=== PATIENT | male | born 1970 | race Caucasian/White ===

== ENCOUNTER 2019-06-13 13:33 | Observation (INO) ==
[2019-06-13] MEDS ORDERED: ONDANSETRON INJ 2 MG/ML 2 ML VIAL IV STA (14:12)
--- NOTE | 2019-06-13 14:21 | Emergency Department Note ---
ED Provider Note NAME: LEXUS LYNNE AGE: 49 SEX: M : 1970 ARRIVES VIA: Walk-In INFORMANT: [Patient, nursing staff] ED PROVIDER(S): [Home Simeon MD] CHIEF COMPLAINT: Alcohol overdose HISTORY OF PRESENT ILLNESS: Patient is a 49-year-old male who presents to the ER by transport vehicle from [facility]. The patient presented there quite intoxicated and admitted to drinking prior to arrival. He was too intoxicated to be assessed and then sent to this ER. The patient admits to falling recently, there is a scrape on his left ribs. He denies any current pain or vomiting, he states that he is not short of breath. The patient's history is quite limited given his alcohol intoxication/mental state. REVIEW OF SYSTEMS: Limited secondary to mental state PMHx/PSHx: See Below SOCIAL HISTORY: See Below. PHYSICAL EXAM: GENERAL: Patient is in no acute distress. Sleeping on the stretcher HEENT: No acute trauma, normocephalic atraumatic, mucous membranes moist, no nasal congestion, no scleral icterus. Pupils equal and reactive to light. NECK: No stridor, no adenopathy, no meningismus, trachea is midline. LUNGS: Clear to auscultation bilaterally, no wheeze, no rhonchi, breath sounds equal. HEART: Mildly tachycardic, regular rhythm, no murmurs. ABDOMEN: Soft, nontender, bowel sounds positive, no hernias, no peritonitis. EXTREMITIES: No cyanosis or edema, full range of motion of all the joints without pain or difficulty, no signs for acute trauma. NEUROLOGIC: Slurs his speech, moves all extremities, seems quite intoxicated with alcohol. Answers very simple and pointed questions. SKIN: No rash, no jaundice, no diaphoresis. DIFFERENTIAL DIAGNOSIS: Alcohol intoxication, toxicologic, infection, hypoglycemia, electrolyte abnormalities, cardiac sources, intracerebral event, neurologic, trauma, as well as other pathologies. EMERGENCY DEPARTMENT COURSE/PROCEDURES: Continuous Cardiac Monitoring: An order was placed for continuous cardiac monitoring. The monitor shows a rate of 106 with sinus tachycardia. MEDICAL DECISION MAKING: The patient is a 49-year-old male who presents with what was presumed to be an alcohol overdose. The patient was trying to get to [facility] but when he arrived at the facility, he was quite altered and was felt in need of medical clearance. He was sent here for a medical work-up. The patient is somnolent but answers simple questions, he does slur his speech. He denied any trauma today or current pain. He did admit to falling several d ays ago injuring his left ribs. There is no leukocytosis or concerning anemia. No significant electrolyte abnormality or kidney failure. There were a few subtle liver enzyme elevations, the bilirubin was normal. Urinalysis did not show infection. Urine tox was negative. Alcohol level was quite elevated at 427. Chest CT did not show any acute traumatic injury. The lungs are clear. Brain CT showed no acute bleed or mass-effect. The patient received IV Zofran, he was ordered for IV Ativan to help with some sedation/agitation. The patient is quite intoxicated and I do think will require a hospital stay. I suspect he will start to have withdrawal when his alcohol level begins to trend down. He is not stable for discharge back to [facility]. I spoke to the caser shoe parts, I talked to the patient. The on-call hospitalist has been consulted. Impression & Plan Alcohol overdose, Alcohol abuse, Change in mental status Past Med/Surg History Medical History Alcohol abuse Depression Tobacco abuse Surgical History History of cervical spinal surgery Family History (Updated 06/13/19 @ 16:46 by Rosetta Morrell PA-C) Father Alzheimer disease Social History Preferred Language: Marshallese Communication Ability: Effective Pottery Striper Required: No Beliefs That Will Affect Care: None Current Living Situation: Alone Other Information That Helps Us Care for You: No Smoking Status: Current every day smoker Tobacco Type: cigarettes ; Cigarettes Per Day: 1/2 ppd ; Hx Alcohol Use: Yes Alcohol type: hard liquor Hx Substance Use: No Results & Data Vital Signs Vital Signs - 24 hr 06/13/19 13:40 06/13/19 13:54 06/13/19 14:33 Temperature 36.7 C Temperature Source Oral Pulse Rate 128 H 120 H 117 H Pulse Rate [Apical] Pulse Rate from SpO2 Sensor 120 H 118 H Respiratory Rate 20 21 30 H Blood Pressure 119/78 170/112 H 154/102 H Blood Pressure [Right Arm] Blood Pressure Mean 91 124 121 Blood Pressure Mean [Right Arm] Pulse Oximetry 97 91 96 Oxygen Delivery Method Room Air Sepsis Recent Fever Within 48 Hours No Sepsis New/Unexplained Change in Mental Status No Sepsis Action Taken by Nursing No Action Required 06/13/19 14:58 06/13/19 14:59 06/13/19 15:00 Temperature Temperature Source Pulse Rate 109 H Pulse Rate [Apical] 107 H Pulse Rate from SpO2 Sensor 110 H 116 H Respiratory Rate 14 16 13 Blood Pressure 143/88 H 152/83 H Blood Pressure [Right Arm] 143/88 H Blood Pressure Mean 95 108 Blood Pressure Mean [Right Arm] 106 Pulse Oximetry 94 95 94 Oxygen Delivery Method Room Air Sepsis Recent Fever Within 48 Hours Sepsis New/Unexplained Change in Mental Status Sepsis Action Taken by Nursing 06/13/19 15:20 06/13/19 15:30 06/13/19 16:00 Temperature Temperature Source Pulse Rate 108 H 111 H 114 H Pulse Rate [Apical] Pulse Rate from SpO2 Sensor 110 H 110 H 115 H Respiratory Rate 14 12 18 Blood Pressure 131/108 H 143/94 H 131/80 Blood Pressure [Right Arm] Blood Pressure Mean 113 102 99 Blood Pressure Mean [Right Arm] Pulse Oximetry 95 93 94 Oxygen Delivery Method Room Air Sepsis Recent Fever Within 48 Hours Sepsis New/Unexplained Change in Mental Status Sepsis Action Taken by Care Home Medications Current Medication List: was personally reviewed by me Laboratory Data Attestation: I reviewed the patient's lab results. Result diagrams: 06/13/19 14:25 06/13/19 14:25 Lab Results 06/13/19 06/13/19 06/13/19 Range/Units 14:20 14:20 14:25 WBC 10.60 (4.8-10.8) K/uL RBC 5.31 (4.7-6.1) M/uL Hgb 15.7 (14.0-18.0) g/dL Hct 45.0 (42-52) % MCV 84.7 (80-100) fL MCH 29.6 (25-34) pg MCHC 34.9 (32-36) g/dL RDW Std Deviation 42.5 (36.4-46.3) fL RDW Coeff of Olivia 13.9 (11.5-14.5) % Plt Count 230 (130-400) K/uL MPV 10.2 (7.4-10.4) fL Immature Gran % (Auto) 0.2 % Neut % (Auto) 67.3 % Lymph % (Auto) 25.1 % [place] % (Auto) 7.0 % Eos % (Auto) 0.1 % Baso % (Auto) 0.3 % Immature Gran # (Auto) 0.02 (0.00-0.02) K/uL Neut # (Auto) 7.14 H (1.4-6.5) K/uL Lymph # (Auto) 2.66 (1.2-3.4) K/uL [place] # (Auto) 0.74 H (0.11-0.59) K/uL Eos # (Auto) 0.01 (0-0.5) K/uL Baso # (Auto) 0.03 (0-0.2) K/uL Sodium (136-145) mmol/L Potassium (3.5-5.1) mmol/L Chloride (98-107) mmol/L Carbon Dioxide (21-32) mmol/L Anion Gap (3-11) BUN (7-18) mg/dl Creatinine (0.6-1.4) mg/dl Est Cr Clr Drug Dosing Est GFR ( Amer) Est GFR (Non-Af Amer) BUN/Creatinine Ratio (10-20) Glucose (70-99) mg/dl Calcium (8.5-10.1) mg/dl Magnesium (1.8-2.4) mg/dl Total Bilirubin (0.2-1) mg/dl AST (15-37) U/L ALT (12-78) U/L Alkaline Phosphatase (45-117) U/L Total Protein (6.4-8.2) gm/dl Albumin (3.4-5.0) gm/dl Globulin (2.5-4.0) gm/dl Albumin/Globulin Ratio (0.9-2) Urine Color Yellow Urine Appearance Clear (Clear) Urine pH 6.5 (4.5-7.5) Ur Specific [place] 1.010 (1.000-1.030) Urine Protein Negative (Negative) Urine Glucose (UA) Trace H (Negative) Urine Ketones Negative (Negative) Urine Blood Negative (Negative) Urine Nitrite Negative (Negative) Urine Bilirubin Negative (Negative) Urine Urobilinogen Negative (Negative) Ur Leukocyte Esterase Negative (Negative) Urine Opiates Screen Neg (Neg) Ur Methadone, Qual Neg (Neg) Urine Barbiturates Neg (Neg) Ur Phencyclidine (PCP) Neg (Neg) U Amphetamin/Meth Scrn Neg (Neg) MDMA (Ecstasy) Screen Neg (Neg) U Benzodiazepines Scrn Neg (Neg) Ur Cocaine Metabolite Neg (Neg) U Marijuana (THC) Screen Neg (Neg) Ethyl Alcohol mg/dL (0-3) mg/dl 06/13/19 06/13/19 06/13/19 Range/Units 14:25 14:25 14:25 WBC (4.8-10.8) K/uL RBC (4.7-6.1) M/uL Hgb (14.0-18.0) g/dL Hct (42-52) % MCV (80-100) fL MCH (25-34) pg MCHC (32-36) g/dL RDW Std Deviation (36.4-46.3) fL RDW Coeff of Olivia (11.5-14.5) % Plt Count (130-400) K/uL MPV (7.4-10.4) fL Immature Gran % (Auto) % Neut % (Auto) % Lymph % (Auto) % [place] % (Auto) % Eos % (Auto) % Baso % (Auto) % Immature Gran # (Auto) (0.00-0.02) K/uL Neut # (Auto) (1.4-6.5) K/uL Lymph # (Auto) (1.2-3.4) K/uL [place] # (Auto) (0.11-0.59) K/uL Eos # (Auto) (0-0.5) K/uL Baso # (Auto) (0-0.2) K/uL Sodium 137 (136-145) mmol/L Potassium 3.3 L (3.5-5.1) mmol/L Chloride 100 (98-107) mmol/L Carbon Dioxide 28 (21-32) mmol/L Anion Gap 9.0 (3-11) BUN 10 (7-18) mg/dl Creatinine 0.78 (0.6-1.4) mg/dl Est Cr Clr Drug Dosing Not Reportable Est GFR ( Amer) 121.1 Est GFR (Non-Af Amer) 104.5 BUN/Creatinine Ratio 12.6 (10-20) Glucose 107 H (70-99) mg/dl Calcium 8.6 (8.5-10.1) mg/dl Magnesium 2.3 (1.8-2.4) mg/dl Total Bilirubin 0.6 (0.2-1) mg/dl AST 53 H (15-37) U/L ALT 86 H (12-78) U/L Alkaline Phosphatase 90 (45-117) U/L Total Protein 7.7 (6.4-8.2) gm/dl Albumin 4.0 (3.4-5.0) gm/dl Globulin 3.7 (2.5-4.0) gm/dl Albumin/Globulin Ratio 1.1 (0.9-2) Urine Color Urine Appearance (Clear) Urine pH (4.5-7.5) Ur Specific [place] (1.000-1.030) Urine Protein (Negative) Urine Glucose (UA) (Negative) Urine Ketones (Negative) Urine Blood (Negative) Urine Nitrite (Negative) Urine Bilirubin (Negative) Urine Urobilinogen (Negative) Ur Leukocyte Esterase (Negative) Urine Opiates Screen (Neg) Ur Methadone, Qual (Neg) Urine Barbiturates (Neg) Ur Phencyclidine (PCP) (Neg) U Amphetamin/Meth Scrn (Neg) MDMA (Ecstasy) Screen (Neg) U Benzodiazepines Scrn (Neg) Ur Cocaine Metabolite (Neg) U Marijuana (THC) Screen (Neg) Ethyl Alcohol mg/dL 427.0 H (0-3) mg/dl Administered Medications Discontinued Medications Lorazepam (Ativan) 0.5 mg in 1 mls @ 1 mls/min IV NOW STA Stop: 06/13/19 15:19 Last Admin: 06/13/19 17:15 Dose: Not Given Documented by: [id number] Miscellaneous () 1 ea N/A NOW STA Stop: 06/13/19 15:10 Last Admin: 06/13/19 15:16 Dose: Not Given Documented by: [id number] Ondansetron HCl (Zofran) 4 mg IV NOW STA Stop: 06/13/19 14:13 Last Admin: 06/13/19 14:34 Dose: 4 mg Documented by: [id number] Potassium Chloride (Klor-Con M20) 40 meq PO NOW STA Stop: 06/13/19 16:27 Last Admin: 06/13/19 16:44 Dose: 40 meq Documented by: [id number] Imaging Data Radiologist's Impression: CT chest wo con CT DOSE: 1137.66 mGy.cm HISTORY: left rib pain, fall TECHNIQUE: Multiaxial CT images of the chest were performed without contrast. A dose lowering technique was utilized adhering to the principles of ALARA. COMPARISON: None. FINDINGS: The lungs are clear. The mediastinal vascular structures are within normal limits. No mediastinal or hilar lymphadenopathy. No pleural effusion or pneumothorax. Limited views of the upper abdomen demonstrate a normal liver and spleen. IMPRESSION: No acute process. CT head/brain wo con CT DOSE: HISTORY: Trauma fall, pain TECHNIQUE: Multiaxial CT images of the head were performed without the use of intravenous contrast. A dose lowering technique was utilized adhering to the principles of ALARA. Comparison: None. Findings: The paranasal sinuses and mastoid air cells are clear. The calvarium and skull base are intact. The ventricles and sulci are within normal limits. There is no mass, hematoma, midline shift, or acute infarct. Impression: No acute intracranial abnormality. Blood Pressure Blood Pressure Findings: Elevated blood pressure Blood Pressure Disposition: further management by hospitalist Discharge Plan Visit Data Chief Complaint: Alcohol Intoxication Stated Complaint: INCAPACITATED ED Provider: Hmoe Simeon Discharge Problem: Alcohol overdose, Alcohol abuse, Change in mental status Discharge Instructions Interventions: ED Discharge Assessment Last Done: 06/13/19 17:10 Discharge Problem: Alcohol overdose Qualifiers: Encounter type: initial encounter Injury intent: accidental or unintentional Qualified Code(s): T51.91XA - Toxic effect of unspecified alcohol, accidental (unintentional), initial encounter Change in mental status Qualifiers: Altered mental status type: unspecified Qualified Code(s): R41.82 - Altered mental status, unspecified
[2019-06-13 14:42] LABS: Basophils # (auto) 0.03 K/uL (0-0.2); Basophils % (auto) 0.3 %; Eosinophils # (auto) 0.01 K/uL (0-0.5); Eosinophils % (auto) 0.1 %; Hemoglobin 15.7 g/dL (14.0-18.0); Immature Granulocytes # (auto) 0.02 K/uL (0.00-0.02); Immature Granulocytes % (auto) 0.2 %; Lymphocytes # (auto) 2.66 K/uL (1.2-3.4); Lymphocytes % (auto) 25.1 %; Mean Corpuscular Hemoglobin 29.6 pg (25-34); Mean Corpuscular Hgb Conc 34.9 g/dL (32-36); Mean Corpuscular Volume 84.7 fL (80-100); Mean Platelet Volume 10.2 fL (7.4-10.4); Monocytes # (auto) 0.74 K/uL (0.11-0.59); Neutrophils # (auto) 7.14 K/uL (1.4-6.5); Neutrophils % (auto) 67.3 %; Platelet Count 230 K/uL (130-400); RDW Coefficient of Variation 13.9 % (11.5-14.5); RDW Standard Deviation 42.5 fL (36.4-46.3); Red Blood Count 5.31 M/uL (4.7-6.1)
--- NOTE | 2019-06-13 14:53 | CT Scan Report ---
CT head/brain wo con CT DOSE: HISTORY: Trauma fall, pain TECHNIQUE: Multiaxial CT images of the head were performed without the use of intravenous contrast. A dose lowering technique was utilized adhering to the principles of ALARA. Comparison: None. Findings: The paranasal sinuses and mastoid air cells are clear. The calvarium and skull base are int act. The ventricles and sulci are within normal limits. There is no mass, hematoma, midline shift, or acute infarct. Impression: No acute intracranial abnormality. ACT 112: Negative or not required by law. The above report was generated using voice recognition software. It may contain grammatical, syntax or spelling errors. Electronically signed by: Duarte Patrick M.D. 06/13/2019 2:51 PM
--- NOTE | 2019-06-13 14:56 | CT Scan Report ---
CT chest wo con CT DOSE: 1137.66 mGy.cm HISTORY: left rib pain, fall TECHNIQUE: Multiaxial CT images of the chest were performed without contrast. A dose lowering techni que was utilized adhering to the principles of ALARA. COMPARISON: None. FINDINGS: The lungs are clear. The mediastinal vascular structures are within normal limits. No media stinal or hilar lymphadenopathy. No pleural effusion or pneumothorax. Limited views of the upper abdo men demonstrate a normal liver and spleen. IMPRESSION: No acute process. ACT 112: Negative or not required by law. The above report was generated using voice recognition software. It may contain grammatical, syntax or spelling errors. Electronically signed by: Daurte Patrick M.D. 06/13/2019 2:54 PM
[2019-06-13 15:00] LABS: Appearance Urine Clear (Clear); Bilirubin Urine Negative (Negative); Blood Urine Negative (Negative); Color Urine Yellow; Glucose Urine UA Trace (Negative); Ketones Urine Negative (Negative); Leukocyte Esterase Urine Negative (Negative); Nitrite Urine Negative (Negative); Protein Urine Negative (Negative); Urobilinogen Urine Negative (Negative); pH Urine 6.5 (4.5-7.5)
[2019-06-13 15:01] LABS: Alanine Aminotransferase 86 U/L (12-78); Aspartate Aminotransferase 53 U/L (15-37); BUN Creatinine Ratio 12.6 (10-20); Blood Urea Nitrogen 10 mg/dl (7-18); Calcium 8.6 mg/dl (8.5-10.1); Carbon Dioxide 28 mmol/L (21-32); Chloride 100 mmol/L (98-107); Est GFR (African American) 121.1; Est GFR (Non-African American) 104.5; Glucose 107 mg/dl (70-99); Potassium 3.3 mmol/L (3.5-5.1); Sodium 137 mmol/L (136-145)
[2019-06-13 15:04] LABS: Albumin Globulin Ratio 1.1 (0.9-2); Alkaline Phosphatase 90 U/L (45-117); Bilirubin,Total 0.6 mg/dl (0.2-1); Globulin 3.7 gm/dl (2.5-4.0); Total Protein 7.7 gm/dl (6.4-8.2)
[2019-06-13] MEDS ORDERED: STAT IV Infusion **Titration per Protocol STA (15:09)
[2019-06-13] MEDS ORDERED: propofoL 1,000 MG/100 ML VIAL IV SCH (15:15)
[2019-06-13 15:16] LABS: Amphetamines+Metham, Urine Neg (Neg); Barbiturates, Urine Neg (Neg); Benzodiazepine, Urine Neg (Neg); Cocaine, Urine Neg (Neg); MDMA (Ecstacy), Urine Neg (Neg); Methadone, Urine Neg (Neg); Opiate, Urine Neg (Neg); Phencyclidine, Urine Neg (Neg)
[2019-06-13] MEDS ORDERED: LORazepam 0.5 MG/1 ML VIAL IV STA (15:18)
[2019-06-13] MEDS ORDERED: POTASSIUM CHLORIDE 20 MEQ TABCR PO STA (16:26)
--- NOTE | 2019-06-13 16:37 | History & Physical Report ---
Date of Service June 13, 2019 Assessment & Plan (1) Alcohol intoxication: Pt is 49 y/o M with PMH alcoholism, tobacco use, depression presented to ER for alcohol intoxication. There is reported patient was to go to [facility] rehab and arrived there today and was found to be intoxicated and incoherent was sent to ER for further evaluation. In ER afebrile, R: 128 down to 111, R: 20, BP: 119/78, 97% on RA. ETOH level: 427. Urine drug tox negative CT Head: no acute changes CT Chest: no acute changes -In ER given zofran -During ER course pt becomes more alert and oriented and is cooperative. Voices wants to go to rehab for help -Alcohol withdrawal protocol with gabapentin and Ativan -Banana bag -Thiamine, folic acid, multivitamin in am -CBC, BMP, magnesium, phosphorus in am -Outpatient review of medications show that pt had naltrexone 50mg daily prescribed on 05/01/2019; Pt reports he hasn't been taking -Case management consult for assistance in discharge planning (2) Hypokalemia: K: 3.3 -Replace and monitor (3) Depression: Reported history of depression -Pt denies suicidal ideations -Pt denies h/o medication use however Outpatient review of medications show that pt had venlafaxine 75mg daily and mirtazapine 15mg daily prescribed on 05/01/2019 (4) Tobacco abuse: -Smoking cessation encouraged -Nicotine patch DVT Prophylaxis -Low risk Full Code as per discussion with pt Follows with [facility] in [place], [place] for routine care Pt was seen and care coordinated with Dr Santamaria. See addendum History of Present Illness Chief Complaint: Alcohol intoxication Primary Care Provider: [facility] in [place], [place] Pt is 49 y/o M with PMH alcoholism, tobacco use, depression presented to ER for alcohol intoxication. There is reported patient was to go to [facility] rehab and arrived there today and was found to be intoxicated and incoherent was sent to ER for further evaluation. It is reported upon initial ER evaluation patient was confused however during ER course patient becomes more alert and oriented. Patient reports history of alcoholism and has required rehab several times in the past. Patient states past several days he went on a "cooper" and was drin jessica 1/5 bottle of vodka daily. Patient states prior to that he last drank 8 months ago. Patient states that he fell a couple days ago while intoxicated falling in his house and hitting his face and left chest on heater. Patient complains of scratch and bruise to left rib cage. Denies shortness of breath or other chest pain. Complains abrasion to bridge of nose. Patient reports history of depression in past and states that he is currently not taking medications. He denies any suicidal ideations. Patient states that he wants to stop drinking and is ready to go to rehab. Patient denies history of alcohol withdrawal seizures or DTs in past. Patient states that he has always went to alcohol rehab for assistance with alcohol cessation. Denies fever/chills, diaphoresis, N/V/D/C, REN, dizziness, syncope, vision changes, neck pain, orthopnea, palpitations, cough, sore throat, choking, otalgia, rhinorrhea, abdominal pain, paresthesias, weakness, extremity weakness, extremity edema, trever hes, urinary symptoms. 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 Beliefs That Will Affect Care: None Current Living Situation: Alone Other Information That Helps Us Care for You: No Smoking Status: Current every day smoker Tobacco Type: cigarettes ; Cigarettes Per Day: 1/2 ppd ; Hx Alcohol Use: Yes Alcohol type: hard liquor Hx Substance Use: No Review of Systems Review of Systems: All systems reviewed & are unremarkable except as noted in HPI & below Physical Exam Physical Exam: General: no acute distress, WDWN Head: normocephalic, atraumatic Eyes: PERRL, EOM's intact, conjunctiva non-injected, anicteric ENT: normal inspection external ears, bridge of nose with abrasion, no epistaxis, mucous membranes moist; +alcohol odor on breath Neck: supple, trachea midline, non-tender Lungs: clear, no respiratory distress, no wheezing/rhonchi/rales Chest: left lateral chest wall with abrasion and ecchymosis with tenderness to palpation, no crepitus CV: RRR, no murmur, no JVD, no pretibial edema Abd: normal BS, soft, non-tender Ext: no cyanosis, no calf tenderness Neuro: A&O x 3, no focal deficits noted, normal affect Skin: warm, dry Results & Data Vital Signs (Past 12 Hours) Vital Signs Temp Pulse Pulse Resp BP BP Pulse Ox 06/13/19 16:00 114 H 18 131/80 94 06/13/19 15:30 111 H 12 143/94 H 93 06/13/19 15:20 108 H 14 131/108 H 95 06/13/19 15:00 13 152/83 H 94 06/13/19 14:59 107 H 16 143/88 H 95 06/13/19 14:58 109 H 14 143/88 H 94 06/13/19 14:33 117 H 30 H 154/102 H 96 06/13/19 13:54 120 H 21 170/112 H 91 06/13/19 13:40 36.7 C 128 H 20 119/78 97 Laboratory Results Short CBC 06/13/19 Range/Units 14:25 WBC 10.60 (4.8-10.8) K/uL Hgb 15.7 (14.0-18.0) g/dL Hct 45.0 (42-52) % Plt Count 230 (130-400) K/uL BMP 06/13/19 14:25 Sodium 137 Potassium 3.3 L Chloride 100 Carbon Dioxide 28 BUN 10 Creatinine 0.78 Glucose 107 H Calcium 8.6 Liver Function 06/13/19 Range/Units 14:25 Total Bilirubin 0.6 (0.2-1) mg/dl AST 53 H (15-37) U/L ALT 86 H (12-78) U/L Alkaline Phosphatase 90 (45-117) U/L Albumin 4.0 (3.4-5.0) gm/dl Urine 06/13/19 Range/Units 14:20 Urine Color Yellow Urine Appearance Clear (Clear) Urine pH 6.5 (4.5-7.5) Ur Specific [place] 1.010 (1.000-1.030) Urine Protein Negative (Negative) Urine Glucose (UA) Trace H (Negative) Diagnostic Findings CT HEAD: Impression: No acute intracranial abnormality. CT CHEST: IMPRESSION: No acute process. Code Status & VTE Plan VTE Prophylaxis Plan VTE Prophylaxis will be ordered: No Supervising Physician Co-Signing Physician Notes I have seen and examined the patient and have discussed the case with the provider above. I agree with the assessment and plan as stated with the following exceptions. 49 yo alcoholic man presented to the ER with acute alcohol intoxication on his way to alcohol rehab at [facility]. He was seen on the floor and is exhibiting acute withdrawal symptoms including anxiety, tachycardia, agitation and tremulousness. Additional Ativan (4mg IV) was just given to help with neuronal excitation. Physical exam reveals NAD with agitation and tremulousness, cardiac exam reveals tachycardia and breath sounds are clear. He is not diaphoretic. He is mentating clearly. Labwork reviewed and normal except for mild hypokalemia and a mild transaminitis consistent with recent alcohol use. A chest CT was performed after a reported fall today and was negative for any acute process. Head CT was also negative for an acute process. Cont supportive management for alcohol withdrawal. DO Rosalio
[2019-06-13] MEDS ORDERED: GABAPENTIN 1200MG ALCOHOL WITHDRAWAL LOAD PO STA (17:25)
[2019-06-13] MEDS ORDERED: LORazepam 2 MG/4 ML VIAL IV PRN (17:25)
[2019-06-13] MEDS ORDERED: LORazepam 1 MG/2 ML VIAL IV PRN (17:25)
[2019-06-13] MEDS ORDERED: ATIVAN IV ALCOHOL WITHDRAWL IV PRN (17:25)
[2019-06-13] MEDS ORDERED: LORazepam 3 MG/6 ML VIAL IV PRN (17:25)
[2019-06-13] MEDS ORDERED: SODIUM CHLORIDE 0.9% 1000ML 1,000 ML IV SCH (17:25)
[2019-06-13] MEDS ORDERED: ACETAMINOPHEN 325 MG TAB PO PRN (17:25)
[2019-06-13] MEDS ORDERED: MULTI-VITAMIN INFUSION 10 ML, THIAMINE HCL 100 MG, FOLIC ACID 1 MG in SODIUM CHLORIDE 0... IV ONE (17:45)
[2019-06-13] MEDS ORDERED: GABAPENTIN 600 MG TAB PO SCH (18:00)
[2019-06-13] MEDS: FOLIC ACID 1 MG TAB PO SCH (18:13)
[2019-06-13] MEDS: THIAMINE HCL 100 MG TAB PO SCH (18:13)
[2019-06-13] MEDS: NICOTINE 14 MG/24 HR PATCH TD SCH (18:14)
[2019-06-13] MEDS ORDERED: LORazepam 4 MG/8 ML VIAL IV STA (18:58)
[2019-06-14] MEDS: GABAPENTIN 600 MG TAB PO SCH ×4 (00:02→20:09)
[2019-06-14 06:16] LABS: Hematocrit (blood only) 37.4 % (42-52); Hemoglobin 12.9 g/dL (14.0-18.0); Mean Corpuscular Hemoglobin 29.7 pg (25-34); Mean Corpuscular Hgb Conc 34.5 g/dL (32-36); Mean Corpuscular Volume 86.2 fL (80-100); Mean Platelet Volume 10.3 fL (7.4-10.4); Platelet Count 180 K/uL (130-400); RDW Standard Deviation 44.4 fL (36.4-46.3); Red Blood Count 4.34 M/uL (4.7-6.1)
[2019-06-14 06:51] LABS: BUN Creatinine Ratio 16.2 (10-20); Calcium 8.2 mg/dl (8.5-10.1); Creatinine Clr Calc Pharmacy 111.3 ml/min; Est GFR (African American) 122.4; Est GFR (Non-African American) 105.6; Magnesium 1.8 mg/dl (1.8-2.4); Phosphorus 2.7 mg/dl (2.5-4.9); Potassium 3.4 mmol/L (3.5-5.1)
[2019-06-14] MEDS: FOLIC ACID 1 MG TAB PO SCH (08:34)
[2019-06-14] MEDS: THIAMINE HCL 100 MG TAB PO SCH (08:34)
[2019-06-14] MEDS: MULTIVITAMIN TAB PO SCH (08:34)
[2019-06-14] MEDS ORDERED: POTASSIUM CHLORIDE 20 MEQ TABCR PO STA (08:34)
[2019-06-14] MEDS: NICOTINE 14 MG/24 HR PATCH TD SCH (08:48)
[2019-06-14] MEDS: cloNIDine HCL 0.1 MG TAB PO SCH ×2 (08:48→20:09)
--- NOTE | 2019-06-14 12:42 | Hospitalist Progress Note ---
Date of Service June 14, 2019 Assessment & Plan (1) Alcohol intoxication: Pt is 49 y/o M with PMH alcoholism, tobacco use, depression presented to ER for alcohol intoxication. There is reported patient was to go to [facility] rehab and arrived there today and was found to be intoxicated and incoherent was sent to ER for further evaluation. In ER afebrile, R: 128 down to 111, R: 20, BP: 119/78, 97% on RA. ETOH level: 427. Urine drug tox negative CT Head: no acute changes CT Chest: no acute changes Feels anxious otherwise no other symptoms Has been getting banana bag, gabapentin protocol, Ativan as needed, thiamine and folic acid No significant tremors on outstretched hands We will monitor in the telemetry unit Will need to go to rehab following discharge from the hospital [facility] or 2 Noted to have high blood pressure Will start clonidine 0.1 mg twice daily We will monitor blood pressure (2) Hypokalemia: K: 3.3 -Replace and monitor (3) Depression: Reported history of depression -Pt denies suicidal ideations -Pt denies h/o medication use however Outpatient review of medications show that pt had venlafaxine 75mg daily and mirtazapine 15mg daily prescribed on 05/01/2019 (4) Tobacco abuse: -Smoking cessation encouraged -Nicotine patch DVT Prophylaxis -We will start subcu heparin Full Code as per discussion with pt Follows with [facility] in [place], [place] for routine care Admission and Anticipated Discharge Date Admission Date: June 13, 2019 Subjective The patient was seen and examined in telemetry unit He is a 49-year-old male with past medical history of alcoholism and tobacco abuse and depression apparently [facility] He drank 4 beers and a few shots of vodka and was brought into ER with intoxication He complains to have nervousness and some shakiness No nausea and or vomiting Review of Systems Review of Systems: All systems reviewed and are unremarkable except as noted below Constitutional: + body aches, + fatigue and + weakness Physical Exam Physical Exam: Lying in bed with some anxiety Constitutional: well developed and well nourished Eyes: PERRL, conjunctivae normal, anicteric sclerae ENMT: external ear and nose normal, oropharynx normal Neck: trachea midline, no thyromegaly Respiratory: normal respiratory effort Auscultation: lungs clear to auscultation bilaterally Cardiovascular: Rate/Rhythm: regular rate and regular rhythm Heart Sounds: no murmur Musculoskeletal: No acute arthritis in any joints Neurologic: Motor/Sensory: + tremor Results & Data ([facility]) Vital Signs (Past 12 Hours) Vital Signs Temp Pulse Pulse Pulse Resp BP Pulse Ox 06/14/19 11:40 36.7 C 83 17 154/82 H 96 06/14/19 07:42 74 06/14/19 07:28 36.8 C 85 17 154/77 H 95 06/14/19 02:45 36.7 C 102 H 18 150/71 H 94 Laboratory Results Short CBC 06/13/19 06/14/19 Range/Units 14:25 06:04 WBC 10.60 8.50 (4.8-10.8) K/uL Hgb 15.7 12.9 L (14.0-18.0) g/dL Hct 45.0 37.4 L (42-52) % Plt Count 230 180 (130-400) K/uL BMP 06/13/19 06/14/19 14:25 06:04 Sodium 137 137 Potassium 3.3 L 3.4 L Chloride 100 104 Carbon Dioxide 28 28 BUN 10 12 Creatinine 0.78 0.76 Glucose 107 H 119 H Calcium 8.6 8.2 L Liver Function 06/13/19 Range/Units 14:25 Total Bilirubin 0.6 (0.2-1) mg/dl AST 53 H (15-37) U/L ALT 86 H (12-78) U/L Alkaline Phosphatase 90 (45-117) U/L Albumin 4.0 (3.4-5.0) gm/dl Urine 06/13/19 Range/Units 14:20 Urine Color Yellow Urine Appearance Clear (Clear) Urine pH 6.5 (4.5-7.5) Ur Specific [place] 1.010 (1.000-1.030) Urine Protein Negative (Negative) Urine Glucose (UA) Trace H (Negative) Medications Administered Current Inpatient Medications Acetaminophen (Tylenol) 650 mg PO Q4H PRN PRN Reason: Pain or Fever Stop: 07/13/19 17:24 Clonidine HCl (Catapres) 0.1 mg PO BID [facility] Stop: 07/14/19 08:59 Last Admin: 06/14/19 08:48 Dose: 0.1 mg Documented by: Folic Acid (Folvite) 1 mg PO QAM [facility] Stop: 07/13/19 17:59 Last Admin: 06/14/19 08:34 Dose: 1 mg Documented by: Gabapentin (Neurontin) 600 mg PO Q8H [facility] Stop: 06/15/19 06:01 Gabapentin (Neurontin) 600 mg PO Q12H [facility] Stop: 06/16/19 06:01 Gabapentin (Neurontin) 600 mg PO Q24H [facility] Stop: 06/17/19 06:01 Lorazepam (Ativan) 1 mg in 2 mls @ 2 mls/min IV UD PRN; Protocol PRN Reason: EtOH Withdrawl AWSS Score 6,7 Stop: 07/13/19 17:24 Lorazepam (Ativan) 2 mg in 4 mls @ 4 mls/min IV UD PRN; Protocol PRN Reason: EtOH Withdrawl AWSS Score 8,9 Stop: 07/13/19 17:24 Lorazepam (Ativan) 3 mg in 6 mls @ 4 mls/min IV ONCE PRN; Protocol PRN Reason: EtOH Withdrawl AWSS Score >=10 Stop: 07/13/19 17:24 Miscellaneous (Remove Nicoderm Patch) 1 ea N/A DAILY@0859 [facility] Stop: 07/14/19 08:58 Last Admin: 06/14/19 08:53 Dose: 1 ea Documented by: Multivitamins (Multivitamin Tab) 1 tab PO [facility] Stop: 07/14/19 08:59 Last Admin: 06/14/19 08:34 Dose: 1 tab Documented by: Nicotine (Nicoderm Cq) 14 mg TD [facility] Stop: 07/13/19 17:59 Last Admin: 06/14/19 08:48 Dose: 14 mg Documented by: Ondansetron HCl (Zofran) 4 mg IV Q6H PRN PRN Reason: Nausea Stop: 07/13/19 17:24 Thiamine HCl (Vitamin B-1) 100 mg PO [facility] Stop: 07/13/19 17:59 Last Admin: 06/14/19 08:34 Dose: 100 mg Documented by:
[2019-06-14] MEDS ORDERED: LORazepam 0.5 MG TAB PO STA (13:46)
[2019-06-14] MEDS: ONDANSETRON INJ 2 MG/ML 2 ML VIAL IV PRN (17:32)
[2019-06-14] MEDS: HEPARIN SOD 5,000 UNIT/0.5 ML VIAL SQ SCH (20:09)
[2019-06-14] MEDS ORDERED: PROMETHAZINE HCL 12.5 MG in SODIUM CHLORIDE 0.9% 50 ML IV PRN (20:53)
[2019-06-14] MEDS ORDERED: FAMOTIDINE 20 MG in SYRINGE 3 ML IV STA (20:54)
[2019-06-14 21:30] LABS: Albumin Level 3.8 gm/dl (3.4-5.0); BUN Creatinine Ratio 13.9 (10-20); Creatinine Clr Calc Pharmacy 81.3 ml/min; Est GFR (African American) 95.9; Est GFR (Non-African American) 82.7; Potassium 3.7 mmol/L (3.5-5.1)
[2019-06-14 21:32] LABS: Bilirubin,Total 0.7 mg/dl (0.2-1); Globulin 3.7 gm/dl (2.5-4.0); Total Protein 7.5 gm/dl (6.4-8.2)
[2019-06-15] MEDS: GABAPENTIN 600 MG TAB PO SCH (06:14)
[2019-06-15 06:33] LABS: Basophils # (auto) 0.01 K/uL (0-0.2); Basophils % (auto) 0.1 %; Eosinophils # (auto) 0.16 K/uL (0-0.5); Eosinophils % (auto) 2.3 %; Hematocrit (blood only) 39.8 % (42-52); Hemoglobin 13.4 g/dL (14.0-18.0); Immature Granulocytes # (auto) 0.02 K/uL (0.00-0.02); Immature Granulocytes % (auto) 0.3 %; Lymphocytes # (auto) 2.04 K/uL (1.2-3.4); Lymphocytes % (auto) 29.5 %; Mean Corpuscular Hemoglobin 29.6 pg (25-34); Mean Corpuscular Hgb Conc 33.7 g/dL (32-36); Mean Corpuscular Volume 87.9 fL (80-100); Mean Platelet Volume 10.9 fL (7.4-10.4); Monocytes # (auto) 0.65 K/uL (0.11-0.59); Monocytes % (auto) 9.4 %; Neutrophils # (auto) 4.04 K/uL (1.4-6.5); Neutrophils % (auto) 58.4 %; Platelet Count 165 K/uL (130-400); RDW Coefficient of Variation 13.5 % (11.5-14.5); RDW Standard Deviation 43.7 fL (36.4-46.3); Red Blood Count 4.53 M/uL (4.7-6.1); White Blood Count 6.92 K/uL (4.8-10.8)
[2019-06-15 07:02] LABS: BUN Creatinine Ratio 17.5 (10-20); Calcium 8.6 mg/dl (8.5-10.1); Creatinine Clr Calc Pharmacy 112.7 ml/min; Est GFR (African American) 123.1; Est GFR (Non-African American) 106.2; Magnesium 2.2 mg/dl (1.8-2.4); Potassium 3.8 mmol/L (3.5-5.1)
[2019-06-15 07:06] VITALS: TEMP 98.8
[2019-06-15 07:15] LABS: Phosphorus 3.6 mg/dl (2.5-4.9)
[2019-06-15] MEDS: NICOTINE 14 MG/24 HR PATCH TD SCH (09:02)
[2019-06-15] MEDS: cloNIDine HCL 0.1 MG TAB PO SCH (09:03)
[2019-06-15] MEDS: HEPARIN SOD 5,000 UNIT/0.5 ML VIAL SQ SCH (09:03)
[2019-06-15] MEDS: FOLIC ACID 1 MG TAB PO SCH (09:03)
[2019-06-15] MEDS: MULTIVITAMIN TAB PO SCH (09:03)
[2019-06-15] MEDS: THIAMINE HCL 100 MG TAB PO SCH (09:04)
--- NOTE | 2019-06-15 10:55 | Hospitalist Progress Note ---
Date of Service June 15, 2019 Assessment & Plan (1) Alcohol intoxication: Pt is 49 y/o M with PMH alcoholism, tobacco use, depression presented to ER for alcohol intoxication. There is [facility] today and was found to be intoxicated and incoherent was sent to ER for further evaluation. In ER afebrile, R: 128 down to 111, R: 20, BP: 119/78, 97% on RA. ETOH level: 427. Urine drug tox negative CT Head: no acute changes CT Chest: no acute changes Feels anxious otherwise no other symptoms Has been getting banana bag, gabapentin protocol, Ativan as needed, thiamine and folic acid No significant tremors on outstretched hands We will monitor in the telemetry unit Will need to go to rehab following discharge from the hospital Clinically much better without any withdrawal symptoms, no tremor with outstretched hands, no tachycardia and no unsteady gait Medically stable to be transferred to [facility] facility this afternoon Noted to have high blood pressure Will start clonidine 0.1 mg twice daily We will monitor blood pressure We will continue current medications of clonidine 0.1 mg twice daily (2) Hypokalemia: K: 3.3 -Replace and monitor -Remains normal (3) Depression: Reported history of depression -Pt denies suicidal ideations -Pt denies h/o medication use however Outpatient review of medications show that pt had venlafaxine 75mg daily and mirtazapine 15mg daily prescribed on 05/01/2019 (4) Tobacco abuse: -Smoking cessation encouraged -Nicotine patch -Continue with nicotine patch DVT Prophylaxis -We will start subcu heparin Full Code as per discussion with pt Follows with [facility] in [place], [place] for routine care Will be discharged to [facility] facility this afternoon Admission and Anticipated Discharge Date Admission Date: June 13, 2019 Subjective The patient was seen and examined in telemetry unit He is a 49-year-old male with past medical history of alcoholism and tobacco abuse and depression apparently was supposed to go to [facility] facility yesterday He drank 4 beers and a few shots of vodka and was brought into ER with intoxication He complains to have nervousness and some shakiness No nausea and or vomiting 06/15/2019 Patient was seen and examined in telemetry unit He complains to have minimal nausea without any vomiting and or abdominal distention or pain Has been walking around the hallway without any unsteadiness No tremor of the outstretched hands Review of Systems Review of Systems: All systems reviewed and are unremarkable except as noted below Neurologic: no gait abnormality and no unsteadiness Physical Exam Physical Exam: Lying in bed with some anxiety Constitutional: well developed and well nourished Eyes: PERRL, conjunctivae normal, anicteric sclerae ENMT: external ear and nose normal, oropharynx normal Neck: trachea midline, no thyromegaly Respiratory: normal respiratory effort Auscultation: lungs clear to auscultation bilaterally Cardiovascular: Rate/Rhythm: regular rate and regular rhythm Heart Sounds: no murmur Gastrointestinal (Abdomen): Inspection/Auscultation: normal bowel sounds; abdomen not distended Percussion/Palpation: abdomen soft; abdomen nontender Musculoskeletal: No acute arthritis involving any joints Neurologic: Motor/Sensory: no tremor and normal movement Results & Data ([facility]) Vital Signs (Past 12 Hours) Vital Signs Temp Pulse Pulse Resp BP Pulse Ox 06/15/19 07:01 37.1 C 64 14 155/82 H 96 06/15/19 03:31 36.6 C 88 18 147/80 H 97 06/14/19 23:31 70 06/14/19 23:20 36.7 C 71 18 162/84 H 97 Laboratory Results Short CBC 06/15/19 Range/Units 06:09 WBC 6.92 (4.8-10.8) K/uL Hgb 13.4 L (14.0-18.0) g/dL Hct 39.8 L (42-52) % Plt Count 165 (130-400) K/uL BMP 06/14/19 06/15/19 21:04 06:09 Sodium 135 L 136 Potassium 3.7 3.8 Chloride 101 102 Carbon Dioxide 28 29 BUN 15 13 Creatinine 1.04 0.75 Glucose 150 H 122 H Calcium 9.0 8.6 Liver Function 06/14/19 Range/Units 21:04 Total Bilirubin 0.7 (0.2-1) mg/dl AST 34 (15-37) U/L ALT 69 (12-78) U/L Alkaline Phosphatase 76 (45-117) U/L Albumin 3.8 (3.4-5.0) gm/dl Medications Administered Current Inpatient Medications Acetaminophen (Tylenol) 650 mg PO Q4H PRN PRN Reason: Pain or Fever Stop: 07/13/19 17:24 Last Admin: 06/14/19 21:01 Dose: 650 mg Documented by: Clonidine HCl (Catapres) 0.1 mg PO BID [facility] Stop: 07/14/19 08:59 Last Admin: 06/15/19 09:03 Dose: 0.1 mg Documented by: Folic Acid (Folvite) 1 mg PO QAM [facility] Stop: 07/13/19 17:59 Last Admin: 06/15/19 09:03 Dose: 1 mg Documented by: Gabapentin (Neurontin) 600 mg PO Q12H [facility] Stop: 06/16/19 06:01 Gabapentin (Neurontin) 600 mg PO Q24H [facility] Stop: 06/17/19 06:01 Heparin Sodium (Porcine) (Heparin Sodium (Porcine)) 5,000 units SQ Q12 [facility] Stop: 07/14/19 20:59 Last Admin: 06/15/19 09:03 Dose: 5,000 units Documented by: Lorazepam (Ativan) 1 mg in 2 mls @ 2 mls/min IV UD PRN; Protocol PRN Reason: EtOH Withdrawl AWSS Score 6,7 Stop: 07/13/19 17:24 Last Admin: 06/14/19 20:19 Dose: 2 mls/min Documented by: Lorazepam (Ativan) 2 mg in 4 mls @ 4 mls/min IV UD PRN; Protocol PRN Reason: EtOH Withdrawl AWSS Score 8,9 Stop: 07/13/19 17:24 Lorazepam (Ativan) 3 mg in 6 mls @ 4 mls/min IV ONCE PRN; Protocol PRN Reason: EtOH Withdrawl AWSS Score >=10 Stop: 07/13/19 17:24 Promethazine HCl 12.5 mg/ (Sodium Chloride) 50.5 mls @ 202 mls/hr IV Q6H PRN PRN Reason: Nausea And Vomiting Stop: 07/14/19 20:52 Miscellaneous (Remove Nicoderm Patch) 1 ea N/A DAILY@0859 [facility] Stop: 07/14/19 08:58 Last Admin: 06/15/19 09:03 Dose: 1 ea Documented by: Multivitamins (Multivitamin Tab) 1 tab PO QAM [facility] Stop: 07/14/19 08:59 Last Admin: 06/15/19 09:03 Dose: 1 tab Documented by: Nicotine (Nicoderm Cq) 14 mg TD [facility] Stop: 07/13/19 17:59 Last Admin: 06/15/19 09:02 Dose: 14 mg Documented by: Ondansetron HCl (Zofran) 4 mg IV Q6H PRN PRN Reason: Nausea Stop: 07/13/19 17:24 Last Admin: 06/14/19 17:32 Dose: 4 mg Documented by: Thiamine HCl (Vitamin B-1) 100 mg PO [facility] Stop: 07/13/19 17:59 Last Admin: 06/15/19 09:04 Dose: 100 mg Documented by:
[2019-06-15 11:51] VITALS: BP 157/100; O2SAT 97
[2019-06-15] MEDS ORDERED: cloNIDine HCL 0.1 MG TAB PO ONE (12:48)
[2019-06-15 13:19] VITALS: PULSE 67
[2019-06-15] MEDS: ONDANSETRON INJ 2 MG/ML 2 ML VIAL IV PRN (13:48)
[2019-06-15] MEDS ORDERED: GABAPENTIN 600 MG TAB PO SCH (18:00)
--- NOTE | 2019-06-16 08:37 | Discharge Summary ---
Date of Service June 16, 2019 Admission HPI Per Admitting Provider Pt is 49 y/o M with PMH alcoholism, tobacco use, depression presented to ER for alcohol intoxication. There is reported patient was to go to [facility] rehab and arrived there today and was found to be intoxicated and incoherent was sent to ER for further evaluation. It is reported upon initial ER evaluation patient was confused however during ER course patient becomes more alert and oriented. Patient reports history of alcoholism and has required rehab several times in the past. Patient states past several days he went on a "cooper" and was drinking 1/5 bottle of vodka daily. Patient states prior to that he last drank 8 months ago. Patient states that he fell a couple days ago while intoxicated falling in his house and hitting his face and left chest on heater. Patient complains of scratch and bruise to left rib cage. Denies shortness of breath or other chest pain. Complains abrasion to bridge of nose. Patient reports history of depression in past and states that he is currently not taking m edications. He denies any suicidal ideations. Patient states that he wants to stop drinking and is ready to go to rehab. Patient denies history of alcohol withdrawal seizures or DTs in past. Patient states that he has always went to alcohol rehab for assistance with alcohol cessation. Denies fever/chills, diaphoresis, N/V/D/C, REN, dizziness, syncope, vision changes, neck pain, orthopnea, palpitations, cough, sore throat, choking, otalgia, rhinorrhea, abdominal pain, paresthesias, weakness, extremity weakness, extremity edema, rashes, urinary symptoms. Admission Exam Per Admitting Provider Physical Exam: General: no acute distress, WDWN Head: normocephalic, atraumatic Eyes: PERRL, EOM's intact, conjunctiva non-injected, anicteric ENT: normal inspection external ears, bridge of nose with abrasion, no epistaxis, mucous membranes moist; +alcohol odor on breath Neck: supple, trachea midline, non-tender Lungs: clear, no respiratory distress, no wheezing/rhonchi/rales Chest: left lateral chest wall with abrasion and ecchymosis with tenderness to palpation, no crepitus CV: RRR, no murmur, no JVD, no pretibial edema Abd: normal BS, soft, non-tender Ext: no cyanosis, no calf tenderness Neuro: A&O x 3, no focal deficits noted, normal affect Skin: warm, dry Principal Diagnosis Alcohol intoxication, alcohol withdrawal symptoms-stable, hypertension, depression, tobacco use disorder Discharge Exam Constitutional well developed and well nourished Eyes PERRL, conjunctivae normal, anicteric sclerae ENMT external ear and nose normal, oropharynx normal Neck trachea midline, no thyromegaly Respiratory normal respiratory effort Auscultation: lungs clear to auscultation bilaterally Cardiovascular Rate/Rhythm: regular rate and regular rhythm Heart Sounds: no murmur Gastrointestinal (Abdomen) Inspection/Auscultation: normal bowel sounds; abdomen not distended Percussion/Palpation: abdomen soft; abdomen nontender Neurologic Motor/Sensory: no tremor and normal movement Discharge Data Allergies Allergy/AdvReac Type Severity Reaction Status Date / Time No Known Allergies Allergy Unverified 06/13/19 16:18 Consultations 06/13/19 15:30 ED Decision to Admit Stat 06/13/19 17:25 Consult Case Management - Discharge Planning Routine Ordered Studies 06/13/19 14:12 CT chest wo con Stat CT head/brain wo con Stat Hospital Course (1) Alcohol intoxication: Pt is 49 y/o M with PMH alcoholism, tobacco use, depression presented to ER for alcohol intoxication. There is reported patient was to go to [facility] rehab and arrived there today and was found to be intoxicated and incoherent was sent to ER for further evaluation. In ER afebrile, R: 128 down to 111, R: 20, BP: 119/78, 97% on RA. ETOH level: 427. Urine drug tox negative CT Head: no acute changes CT Chest: no acute changes Feels anxious otherwise no other symptoms Has been getting banana bag, gabapentin protocol, Ativan as needed, thiamine and folic acid No significant tremors on outstretched hands We will monitor in the telemetry unit Will need to go to rehab following discharge from the hospital Clinically much better without any withdrawal symptoms, no tremor with outstretched hands, no tachycardia and no unsteady gait Medically stable [facility] Noted to have high blood pressure Will start clonidine 0.1 mg twice daily We will monitor blood pressure We will continue current medications of clonidine 0.1 mg twice daily (2) Hypokalemia: K: 3.3 -Replace and monitor -Remains normal (3) Depression: Reported history of depression -Pt denies suicidal ideations -Pt denies h/o medication use however Outpatient review of medications show that pt had venlafaxine 75mg daily and mirtazapine 15mg daily prescribed on 05/01/2019 (4) Tobacco abuse: -Smoking cessation encouraged -Nicotine patch -Continue with nicotine patch DVT Prophylaxis -We will start subcu heparin Full Code as per discussion with pt Follows with [facility] in [place], [place] for routine care Will be discharged to [facility] this afternoon Total Time Total Time Spent Total Time Spent (In Minutes): 35 minutes Total Time Includes: Examination of the Patient, Discharge Planning and Medication Reconciliation Discharge Plan Discharge Items Patient Disposition: Transfer Inpatient Rehab Fac Reason For Visit: ALCOHOL INTOXICATION Discharge Diagnosis: Alcohol intoxication, alcohol withdrawal symptoms-stable, hypertension, depression, tobacco use disorder Condition on Discharge: Good Activity: Resume your previous activity Non-emergency contact: Primary Care Provider Call non-emergency contact if: you have any medication questions and your symptoms worsen Follow-up/Referrals: PCP,NO [Primary Care Provider] - (Please establish with a PCP when you are out from the rehab center) Diet: Regular Addtl Attending Provider Instructions: Take precaution to avoid fall Complete avoidance of alcohol Pending Studies at Discharge: No Stand-Alone Forms: My [facility] Skilled Items Patient informed of condition?: Yes DNR: No Discharge Level of Care: Acute rehab Communicable Disease: No Discharge Prognosis: Improving Lines: None Urinary Catheter: No Medications and DC Order Prescriptions: New multivitamin [Daily-Jose] Tablet 1 tab PO QAM 30 Days Qty: 30 RF: 0 clonidine HCl 0.1 mg Tablet 0.1 mg PO BID 30 Days Qty: 60 RF: 0 thiamine HCl (vitamin B1) [Vitamin B-1] 100 mg Tablet 100 mg PO QAM 30 Days Qty: 30 RF: 0 folic acid 1 mg Tablet 1 mg PO QAM 30 Days Qty: 30 RF: 0 nicotine 7 mg/24 hr Patch 24 Hour 14 mg transdermal QAM 30 Days Qty: 30 RF: 0 gabapentin 600 mg tablet 600 mg PO UD Qty: 3 RF: 0 Continued naltrexone 50 mg tablet 50 mg PO DAILY 30 Days Qty: 30 RF: 0 Discharge Orders: Discharge Order (Routine); Ordered 06/15/19 Ordered By: Madiha Roca/Other Patient Handouts: Understanding the Disease of Addiction, The Impact of Alcoholism, Addiction Alcohol, Addiction Ask These Questions, Addiction Get Help, Addiction Recovery, Addiction Recovery Bradley W Relapse Admission Data Admit Date/Time: 06/13/19 16:23 Attending Provider: Madiha Gage Admit Provider: Greta Santamaria Primary Care Provider: PCP,NO Other Providers: Greta Santamaria Other Interventions: Discharge Summary Assessment (RN) Last Done: 06/15/19 13:03 DC Date/Time DO NOT enter until pt leaves facility: 06/15/19 16:32
[2019-06-17] MEDS ORDERED: GABAPENTIN 600 MG TAB PO SCH (06:00)
== END 2019-06-15 16:32 | disposition alcohol treatment (31) | DRG 897 ==
LOC: ED 13:33 → INTOOBSV 16:23 → 2S 16:23 → SUATTDRO 16:23 → 2S 17:10